=== PATIENT | male | born 1965 | race Caucasian/White ===

== ENCOUNTER 2024-08-01 06:19 | Day surgery (SDC) | payer BC, SELFPAY | END 2024-08-01 11:41 | disposition home or self-care (01) | LOC: GI 06:19 | PROVIDERS: ATTENDING PHYSICIAN Internal Medicine Gastroenterology; FAMILY PHYSICIAN Family Medicine | DX: Z12.11 Encounter for screening for malignant neoplasm of colon (principal); K57.30 Diverticulosis of large intestine without perforation or abscess without bleeding; K64.8 Other hemorrhoids; D12.2 Benign neoplasm of ascending colon; D12.4 Benign neoplasm of descending colon; Z80.0 Family history of malignant neoplasm of digestive organs | CPT/HCPCS: 45385; 88305 ==